=== PATIENT | male | born 1985 | race Two or more races ===

== ENCOUNTER 2021-08-16 20:29 | Inpatient (IN) | payer MEDICAID ==
[~2021-08-16] VITALS: Ht 177.8 cm; Wt 131.1 kg
--- NOTE | 2021-08-16 22:00 | NUR ---
RN NOTES: -RECEIVED A PHONE ENDORSEMENT FROM IMANI MAI/[facility] TEL:[phone], DIRECT ADMIT 35 Y.O., A/OX4,ON O2 AT 2-3L/MIN VIA NC SPO2-94-96%, AMBULATORY, MALE WITH C/O RIGHT SIDED CHEST SHARP PAIN RADIATES ON THE RIGHT UPPER ARM 4/10 WITH THROBBING HEADACHE,DYSPNEA ON EXERTION,NAUSEA, VOMITING AND SWEATING, TACHYCARDIC-100'S, PATIENT IS ALCOHOLIC DRINKER DAILY,LAST DRINK AT 10AM TODAY GIVEN ATIVAN 2 MG, HIS K-3.3-REPLACED WITH KCL 20 mEq P.O., [id number] REPLACED,TROPONIN 4, CTA TO R/O PULMONARY EMBOLISM- NEGATIVE; CT HEAD-NEGATIVE, CXR-NEGATIVE, IV CANULA ON THE RH G#20,SKIN IS INTACT, HOME MEDS:METHADONE AND LASIX ITS WITH THE PATIENT.ETA WITHIN 20 MINUTES.
--- NOTE | 2021-08-16 22:55 | NUR ---
RN NOTES: DIRECT ADMIT JACQUI ROBBINS SHWETA AT AROUND 2258, BROUGHT IN BY 2 EMT VIA BENJYRRAIMUNDO, A/O4, ON O2 INHALATION AT 2-3L/MIN VIA NC, SPO2-94%, TELE MONITOR-SINUS RHYTHM WITH BBB AND OCCASIONAL PVC, ONCE HE IS ANXIOUS HE IS TACHYCARDIEC REACHING -100'S, NOTED WITH SLIGHT SOB UPON EXERTION, ABLE TO MAKE NEEDS KNOW, HE ADMIT HE IS ALCOHOLIC AND DRINK VODKA 7-8 GLASSES A DAY, HE IS A SMOKER BEFORE BUT HE ALREADY STOP MORE THAN A YEAR,HE ADMIT HE WAS A HEROIN USER AND ON METHADONE 120 MG Q DAILY, HE IS TAKING LASIX DAILY.HE HAD SEVERE HEADACHE AND RIGHT SIDED CHEST PAIN THATS WHY HE WENT TO HOSPITAL, HE JUST MOVE IN FROM [place] TO [place], STAYING WITH FRIENDS, HE DID NOT HAVE ANY COVID VACCINE,RN OFFERED BUT HE DECLINED IMMEDIATELY, WISH TO BE FULL CODE. --BODY ASSESSMENT DONE: 1)SKIN DISCOLORATION ON THE LEFT LOWER QUADRANT OF THE ABDOMEN 2)NON PITTING EDEMA OF THE RIGHT FOOT(+) AND LEFT FOOT(+) 3)DISCOLORATION ON THE RIGHT FOOT ANTERIOR AREA 4)SCATTERED RASHES ON THE BACK 5)RIGHT FOREARM WITH SEVERAL NEEDLE PRICK -ORIENTED TO UNIT AND STAFF, FALL,SAFETY,ASPIRATION AND SEIZURE PRECAUTION OBSERVED.
[2021-08-16] MEDS ORDERED: ACETAMINOPHEN 325 MG TABLET PO PRN (23:30)
[2021-08-16] MEDS ORDERED: MAGNESIUM HYDROXIDE 30 ML UDC PO PRN (23:30)
[2021-08-16] MEDS ORDERED: Z GUARD REMEDY 4 OZ OINT TP PRN (23:30)
[2021-08-16] MEDS ORDERED: ZOLPIDEM TARTRATE 5 MG TABLET PO PRN (23:30)
[2021-08-16] MEDS ORDERED: MAG HYDROX/AL HYDROX/SIMETH 30 ML UDC PO PRN (23:30)
[2021-08-16] MEDS ORDERED: ONDANSETRON HCL/PF 4 MG/2 ML VIAL IVP PRN (23:30)
[2021-08-16] MEDS ORDERED: FURO40TA5 PO (23:52)
[2021-08-16] MEDS ORDERED: METHADONE (23:55)
--- NOTE | 2021-08-16 23:55 | NUR ---
RN NOTES: -SEEN AND EXAMINE AT 2338, NO NEED COVID TEST, JUST DO MRSA, COLLECTED SPECIMEN,. -STILL WITH HEADACHE AND HIGH BLOOD PRESSURE AND NAUSEATED AWARE. -F/U IN PHARMACY SPOKE WITH MEAGHAN TO VERIFY ORDER AND RELEASE OF MEDICATION IN THE [facility]
[2021-08-17] VITALS (7 sets, daily range): BP systolic 148–166; BP diastolic 95–112
--- NOTE | 2021-08-17 00:29 | NUR ---
RN NOTES: PER PATIENT HE HAS NO KNOWN ALLERGY
--- NOTE | 2021-08-17 00:35 | NUR ---
RN NOTES: VOMITED ONCE UPON ADMISSION ONLY SALIVA, HE IS NAUSEATED MOST OF THE TIME, ZOFRAN GIVEN.
--- NOTE | 2021-08-17 00:50 | NUR ---
RN NOTES: BP RECHECKED-166/98 HR-102 SPO2-944 WITH O2 AT 2L/MIN, HE LOOKS MORE RELAX NOW, TYLENOL GIVEN FOR HEADACHE.
--- NOTE | 2021-08-17 02:08 | NUR ---
RN NOTES: ABLE TO SLEEP AND REST IN SHORT INTERVALS, ZOFRAN WAS EFFECTIVE, NO NAUSEA AND VOMITING, KEPT RESTED, DIM LIT THE ROOM, KEPT CALL LIGHT WITHIN EASY REACH, CHECK AT FREQUENT INTERVALS.
--- NOTE | 2021-08-17 02:55 | NUR ---
RN NOTES: - HAD ROUNDS NOTIFIED PATIENT LATEST BP-158/99, NOTICED WHILE HE IS ASLEEP HE HAS JERKY MOVEMENT AND HE MENTIONED HE HAD SOME TREMOR WHILE HE WAS AWAKE AROUND 0100. -ADDED LIBRIUM, SHE INSTRUCT TO GIVE ONLY IF PATIENT IS AWAKE. -RIGHT NOW PATIENT IS IN DEEP SLEEP.
[2021-08-17] MEDS: CHLORDIAZEPOXIDE HCL 25 MG CAPSULE PO SCH ×3 (03:28→16:22)
--- NOTE | 2021-08-17 03:28 | NUR ---
RN NOTES: PATIENT WAS AWAKE HE IS ASKING FOR HIS METHADONE EXPLAINED TO HIM IT WILL BE GIVEN IN THE MORNING ORDERED BY THE DOCTOR RIGHT NOW WILL GIVE HIM LIBRIUM FOR HIS TREMORS, HE AGREED.
[2021-08-17 06:48] LABS: CALCIUM, SERUM 8.5 mg/dL (8.5-10.1); CREATININE 0.7 mg/dL (0.6-1.3); MAGNESIUM 1.9 mg/dL (1.8-2.4); PHOSPHORUS 3.3 mg/dL (2.5-4.9); POTASSIUM 3.4 mmol/L (3.5-5.1)
[2021-08-17 06:50] LABS: BASOPHILS % (AUTO) 0.3 % (0.0-2.0); HEMATOCRIT 40 % (39-51); HEMOGLOBIN 13.2 g/dL (13.5-17.5); LYMPHOCYTES # (AUTO) 1.1 K/uL (0.8-4.8); LYMPHOCYTES % (AUTO) 10.9 % (20.0-44.0); MEAN CORPUSCULAR HGB CONC 33 g/dl (31.0-36.0); MEAN CORPUSCULAR VOLUME 93 fL (80-96); MONOCYTES % (AUTO) 10.3 % (2.0-12.0); NEUTROPHILS # (AUTO) 7.7 K/uL (1.8-8.9); NEUTROPHILS % (AUTO) 77.5 % (43.0-81.0); PLATELET COUNT (AUTO) 84 K/uL (150-450); RED BLOOD CELL COUNT(AUTO) 4.32 MIL/uL (4.5-6.0); WHITE BLOOD COUNT (AUTO) 9.9 K/uL (4.3-11.0)
--- NOTE | 2021-08-17 07:30 | NUR ---
SENIOR RISK ANALYST NOTES RECEIVED PATIENT AWAKE IN BED. PATIENT IS ALERT AND ORIENTED TIMES 4. NO PAIN NOTED. NO SOB NOTED. NO DISTRESS NOTED. ABLE TO MAKE NEEDS KNOWN. ON O2 INHALATION VIA NASAL CANNULA. NOTED AT 96%. ON TELE MONITOR. NO ACUTE DISTRESS NOTED. ALL NEEDS ATTENDED. ALL SAFETY MEASURES IN PLACE. BED LOCKED IN THE LOWEST POSITION AND LOCKED. CALL LIGHT AND TABLE IN EASY REACH. BED SIDE RAILS UP TIMES 2. REMIND PATIENT IF FEELS UNSTEADY AND SHAKING REMAINS IN BED AND ASK FOR ASSISTANCE FOR ANY HELPS. PATIENT VERBALIZED UNDERSTANDING.WILL CONTINUE TO MONITOR.
[2021-08-17] MEDS ORDERED: KEY,NONCONTROL,TO KEEP IN PYXI 1 EA MC ONE ×2 (07:47→08:05)
[2021-08-17 08:03] LABS: CHOLESTEROL 168 mg/dL (<200); HDL CHOLESTEROL 65 mg/dL (40-60); LDL 84 mg/dL (0-99); TRIGLYCERIDES 86 mg/dL (30-150)
[2021-08-17] MEDS: ASPIRIN 81 MG TAB.CHEW PO SCH (08:14)
[2021-08-17] MEDS: FUROSEMIDE 40 MG TABLET PO SCH (08:15)
[2021-08-17] MEDS: METHADONE PO SCH (08:15)
[2021-08-17] MEDS ORDERED: POTASSIUM CHLORIDE 20 MEQ TAB.PRT.SR PO SCH (10:30)
[2021-08-17] MEDS: LORAZEPAM INJ 2 MG/ML VIAL IV PRN ×2 (14:04→20:46)
--- NOTE | 2021-08-17 19:30 | NUR ---
RN NOTE RECEIVED PATIENT IN BED, FAMILY AT BEDSIDE, AO X 4, IN NO ACUTE DISTRESS AT THIS TIME. BREATHING UNLABORED, SATURATION AT 95% ON 2L VIA NC, SR ON THE MONITOR, HR IS 99. IV LINE AT R HAND 20G DISLODGED, INSERTED ANOTHER IV LINE 20G AT R FA 20G, PATENT AND FLUSHING WELL, NO S/S OF INFECTION OR INFILTRATION. PATIENT IS CONTINENT AND USES URINAL. SAFETY MEASURES IMPLEMENTED. PATIENT BED ALARM IS ON. HEAD OF BED ELEVATED. BED IS LOCKED, IN LOWEST POSITION AND SIDE RAILS UP. CALL LIGHT WITHIN REACH OF THE PATIENT. WILL CONTINUE TO MONITOR AND REASSESS FOR ANY CHANGES.
--- NOTE | 2021-08-17 19:31 | NUR ---
BARROW WORKER HELPER CLOSING NOTES PATIENT AWAKE IN BED. PATIENT IS ALERT AND ORIENTED TIMES 4. NO PAIN NOTED. NO SOB NOTED. NO DISTRESS NOTED. ABLE TO MAKE NEEDS KNOWN. ON O2 INHALATION VIA NASAL CANNULA. NOTED AT 95%. ON TELE MONITOR. NO ACUTE DISTRESS NOTED. ALL NEEDS ATTENDED. ALL DUE MEDS GIVEN ORDERED.ALL SAFETY MEASURES IN PLACE. BED LOCKED IN THE LOWEST POSITION AND LOCKED. CALL LIGHT AND TABLE IN EASY REACH. BED SIDE RAILS UP TIMES 2. REMIND PATIENT IF FEELS UNSTEADY AND SHAKING REMAINS IN BED AND ASK FOR ASSISTANCE FOR ANY HELPS. PATIENT VERBALIZED UNDERSTANDING.WILL ENDORSE FOR ILENE.
[2021-08-18] VITALS: BP 136/96
[2021-08-18 04:00] VITALS: BP 157/99
[2021-08-18 06:55] LABS: BASOPHILS % (AUTO) 0.3 % (0.0-2.0); EOSINOPHILS % (AUTO) 3.4 % (0.0-6.0); HEMATOCRIT 40 % (39-51); HEMOGLOBIN 13.2 g/dL (13.5-17.5); LYMPHOCYTES # (AUTO) 1.2 K/uL (0.8-4.8); LYMPHOCYTES % (AUTO) 11.6 % (20.0-44.0); MEAN CORPUSCULAR HGB CONC 33 g/dl (31.0-36.0); MEAN CORPUSCULAR VOLUME 94 fL (80-96); MONOCYTES # (AUTO) 1.1 K/uL (0.1-1.30); MONOCYTES % (AUTO) 10.4 % (2.0-12.0); NEUTROPHILS # (AUTO) 7.7 K/uL (1.8-8.9); NEUTROPHILS % (AUTO) 74.3 % (43.0-81.0); PLATELET COUNT (AUTO) 96 K/uL (150-450); RED BLOOD CELL COUNT(AUTO) 4.26 MIL/uL (4.5-6.0); WHITE BLOOD COUNT (AUTO) 10.3 K/uL (4.3-11.0)
--- NOTE | 2021-08-18 07:28 | NUR ---
RN OPENING NOTES PATIENT AWAKE IN BED. PATIENT IS A/O X 4. NO PAIN NOTED. NO SOB NOTED. NO DISTRESS NOTED. ABLE TO MAKE NEEDS KNOWN. ON O2 INHALATION VIA NASAL CANNULA. NOTED AT 95%. ON TELE MONITOR. NO ACUTE DISTRESS NOTED. ALL NEEDS ATTENDED. ALL DUE MEDS GIVEN ORDERED.ALL SAFETY MEASURES IN PLACE. WILL CONT. TO MONITOR THROUGHOUT SHIFT.
[2021-08-18 08:00] VITALS: BP 149/98
[2021-08-18 08:15] LABS: CALCIUM, SERUM 8.1 mg/dL (8.5-10.1); CREATININE 0.8 mg/dL (0.6-1.3); POTASSIUM 3.5 mmol/L (3.5-5.1)
[2021-08-18] MEDS: METHADONE PO SCH (08:54)
[2021-08-18] MEDS: FUROSEMIDE 40 MG TABLET PO SCH (08:54)
[2021-08-18] MEDS: CHLORDIAZEPOXIDE HCL 25 MG CAPSULE PO SCH ×2 (08:54→16:13)
[2021-08-18] MEDS: ASPIRIN 81 MG TAB.CHEW PO SCH (08:54)
[2021-08-18] MEDS ORDERED: METOPROLOL TARTRATE 50 MG TABLET PO SCH (09:30)
[2021-08-18] MEDS: POTASSIUM CHLORIDE 20 MEQ TAB.PRT.SR PO SCH ×2 (09:55→10:39)
[2021-08-18 12:00] VITALS: BP 122/81
--- NOTE | 2021-08-18 13:15 | NUR ---
SW Consult: SW consult requested for patient substance abuse. Patient was brought in due to hypertension and alcohol abuse. Patient presents alert and oriented x4 (self,place,time,situation). Patient presented with flat affect and was guarded. Patient was with grandmother Rosalia ([phone]) who was present in patient's room. SW asked if he is comfortable with grandmother present, he stated he wants grandmother present. Patient reported that he was brought to the hospital due to hypertension and substance abuse. Patient reported that he began to heavily drink at the age of 33. He reported that he only drinks liquor and drinks a glass a day. Patient denied any use of drugs. Patient reports that he is currently unemployed and lives with grandmother Rosalia ([phone]) located at [address] [place] [address]. He stated that grandmother takes care of him. Patient denies any suicidal or homicidal ideation. Patient denied visual/auditory hallucinations. Patient denied any sort of mental health issues. SW offered pt resources and he was agreeable of taking the resources. SW conducted brief substance abuse intervention. Substance Abuse resources provided included: [facility] Substance Abuse Self-Helpline ([facility]) ; [facility] [id number] [facility] [id number] ; [facility] [address] [facility] [address] ; [facility] [address] [facility] [address] ; [facility] [address] [address] ; [facility] [address] [facility] [address] ; [facility] [address] [facility] [address] ; [facility] Substance Abuse Helpline([facility] ; [facility] ; [facility] [place]; [facility] [place]; [facility] [place]; [facility] Gustavo Sommerka[place]; [facility] [place]; [facility] [place]; [facility] [place]; [facility], [facility]. [facility] [place]; Alcoholics Anonymous -[facility]; [facility] ; Marijuana Anonymous [facility]; Narcotics Anonymous www.na.org;
[2021-08-18] MEDS ORDERED: METO50TA16 PO (14:48)
[2021-08-18] MEDS ORDERED: ASPI-1169 PO (14:48)
[2021-08-18 15:22] LABS: LYMPHOCYTES % (MANUAL) 10 % (16-48); MONOCYTES % (MANUAL) 10 % (0-11.0); NEUTROPHILS % (MANUAL) 75 (42-76)
[2021-08-18 15:23] LABS: EOSINOPHILS % (MANUAL) 5 % (0-4)
--- NOTE | 2021-08-18 16:20 | NUR ---
DC NOTES PT DC'D TO HOME IN STABLE CONDITION. PT REQUESTED 1700 MEDICINE. ADMINISTERED LIBRIUM AND DISCUSSED POTENTIAL SIDE EFFECTS WITH PT. SAFETY MEASURES EXPLAINED AND PT VERBALIZED UNDERSTANDING. ALL PAPERWORK SIGNED AND COMPLETED. ALL BELONGINGS SENT WITH PT. IV ACCESS REMOVED WITH NO COMPLICATIONS. PT LEFT UNIT IN WHEELCHAIR HAPPILY WITH GRANDMOTHER IN STABLE CONDITION.
[2021-08-18] MEDS ORDERED: KEY,NONCONTROL,TO KEEP IN PYXI 1 EA MC ONE (16:42)
== END 2021-08-18 16:30 | disposition home or self-care (01) | DRG 133 ==
LOC: TELE1 22:50 → MEDSG1 08-18 12:21
PROVIDERS: ADMIT Nurse Practitioner Acute Care; ATTEND Student in an Organized Health Care Education/Training Program
DX: J96.01 Acute respiratory failure with hypoxia (principal); I11.9 Hypertensive heart disease without heart failure; E66.9 Obesity, unspecified; E87.6 Hypokalemia; Z87.891 Personal history of nicotine dependence; F11.10 Opioid abuse, uncomplicated; Z79.899 Other long term (current) drug therapy; Y90.9 Presence of alcohol in blood, level not specified; Z68.41 Body mass index [BMI] 40.0-44.9, adult; F10.139 Alcohol abuse with withdrawal, unspecified; Z20.822 Contact with and (suspected) exposure to COVID-19; R25.1 Tremor, unspecified
CPT/HCPCS: 36415; 80048-TC; 80061-TC; 83735-TC; 83880; 84100-TC; 84484-TC; 85025-TC; 87081-TC; 93307-TC; 94799-TC; G0378; J2060; J2405

== ENCOUNTER 2022-02-28 10:48 | Emergency (ER) | payer SELFPAY ==
[~2022-02-28] VITALS: Ht 182.9 cm; Wt 163.3 kg
[~2022-02-28 10:48] MED LIST: ASPI-1169 PO; FURO40TA5 PO; METHADONE; METO50TA16 PO
--- NOTE | 2022-02-28 11:10 | NUR ---
Andrei garcia in [facility] - 02/28/22 at 1255 by GEOFF BP HIGH(161/100) YESTERDAY, DRINKS A BOTTLE OF VODKA (750 ML) A DAY
[2022-02-28] MEDS ORDERED: LORAZEPAM INJ 2 MG/ML VIAL ONE (11:51)
[2022-02-28] MEDS ORDERED: IV NS 0.9% 1,000 ML BAG IV ONE (12:00)
[2022-02-28] MEDS ORDERED: LORAZEPAM INJ 2 MG/ML VIAL IV ONE (12:00)
[2022-02-28 12:21] LABS: BASOPHILS % (AUTO) 0.3 % (0.0-2.0); EOSINOPHILS % (AUTO) 1.9 % (0.0-6.0); HEMATOCRIT 46 % (39-51); HEMOGLOBIN 15.3 g/dL (13.5-17.5); LYMPHOCYTES # (AUTO) 1.6 K/uL (0.8-4.8); LYMPHOCYTES % (AUTO) 22.9 % (20.0-44.0); MEAN CORPUSCULAR HGB CONC 33 g/dl (31.0-36.0); MEAN CORPUSCULAR VOLUME 89 fL (80-96); MONOCYTES # (AUTO) 0.7 K/uL (0.1-1.30); MONOCYTES % (AUTO) 9.8 % (2.0-12.0); NEUTROPHILS # (AUTO) 4.6 K/uL (1.8-8.9); NEUTROPHILS % (AUTO) 65.1 % (43.0-81.0); PLATELET COUNT (AUTO) 113 K/uL (150-450); RED BLOOD CELL COUNT(AUTO) 5.18 MIL/uL (4.5-6.0); WHITE BLOOD COUNT (AUTO) 7.1 K/uL (4.3-11.0)
[2022-02-28 12:36] LABS: CALCIUM, SERUM 9.1 mg/dL (8.5-10.1); CARBON DIOXIDE 25 mmol/L (21-32); CHLORIDE 101 mmol/L (98-107); CREATININE 0.8 mg/dL (0.6-1.3); GLUCOSE 125 mg/dL (74-106); POTASSIUM 3.4 mmol/L (3.5-5.1); SODIUM SERUM 135 mmol/L (136-145); UREA NITROGEN, BLOOD 6 mg/dL (7-18)
[2022-02-28] MEDS ORDERED: POTASSIUM CHLORIDE 20 MEQ TAB.PRT.SR PO ONE ×2 (13:30→13:31)
[2022-02-28] MEDS ORDERED: CHLO25CA22 PO (13:39)
[2022-02-28 14:29] VITALS: BP 141/98
== END 2022-02-28 14:30 | disposition home or self-care (01) ==
LOC: ER 10:55
DX: R07.9 Chest pain, unspecified (principal); F10.239 Alcohol dependence with withdrawal, unspecified; F10.229 Alcohol dependence with intoxication, unspecified; I10 Essential (primary) hypertension; Z79.899 Other long term (current) drug therapy; Y90.9 Presence of alcohol in blood, level not specified
CPT/HCPCS: 99285; 96374; 71045; 96361; 93005; 85025; 80048; 36415; 84484; J2060; J7030

== ENCOUNTER 2022-03-30 18:39 | Inpatient (IN) | payer MEDICAID ==
[~2022-03-30] VITALS: Ht 172.7 cm; Wt 120.2 kg
[~2022-03-30 18:39] MED LIST changes: +CHLO25CA22 PO
--- NOTE | 2022-03-30 19:17 | NUR ---
DR GROSS AT BEDSIDE FOR EVAL
--- NOTE | 2022-03-30 19:30 | NUR ---
PT IN ER ROOM 4. C/O SOB, HIGH BP. , AND ETOH WITHDRAWALS. ADMITS TO LAST DRINK 3 HOURS AGO. PT IS ALERT AND ORIENTED. RR EVEN AND NONLABORED. CONNECTED TO MONITOR.
[2022-03-30] MEDS ORDERED: LORAZEPAM 1 MG TABLET ONE (19:34)
--- NOTE | 2022-03-30 19:46 | NUR ---
IV LINE ESTABLISHED, LHAND 20G
[2022-03-30] MEDS ORDERED: LORAZEPAM 1 MG TABLET PO ONE (20:00)
[2022-03-30] MEDS ORDERED: IV NS 0.9% 1,000 ML IV ONE (20:00)
[2022-03-30 20:02] LABS: BASOPHILS % (AUTO) 0.5 % (0.0-2.0); EOSINOPHILS % (AUTO) 1.2 % (0.0-6.0); HEMATOCRIT 42 % (39-51); LYMPHOCYTES # (AUTO) 1.8 K/uL (0.8-4.8); LYMPHOCYTES % (AUTO) 27.4 % (20.0-44.0); MEAN CORPUSCULAR HGB CONC 33 g/dl (31.0-36.0); MEAN CORPUSCULAR VOLUME 87 fL (80-96); MONOCYTES # (AUTO) 0.9 K/uL (0.1-1.30); MONOCYTES % (AUTO) 13.2 % (2.0-12.0); NEUTROPHILS # (AUTO) 3.8 K/uL (1.8-8.9); NEUTROPHILS % (AUTO) 57.7 % (43.0-81.0); PLATELET COUNT (AUTO) 97 K/uL (150-450); RED BLOOD CELL COUNT(AUTO) 4.88 MIL/uL (4.5-6.0); WHITE BLOOD COUNT (AUTO) 6.6 K/uL (4.3-11.0)
[2022-03-30 20:03] LABS: CALCIUM, SERUM 8.3 mg/dL (8.5-10.1); CARBON DIOXIDE 27 mmol/L (21-32); CHLORIDE 103 mmol/L (98-107); CREATININE 0.9 mg/dL (0.6-1.3); GLUCOSE 165 mg/dL (74-106); POTASSIUM 3.4 mmol/L (3.5-5.1); SODIUM SERUM 139 mmol/L (136-145); UREA NITROGEN, BLOOD 16 mg/dL (7-18)
[2022-03-30 20:10] LABS: ALANINE AMINOTRANSFERASE 86 U/L (12-78); ALBUMIN 3.5 g/dL (3.4-5.0); ALCOHOL, BLOOD 254 mg/dL (0-0); ALKALINE PHOSPHATASE 116 U/L (46-116); ASPARTATE AMINOTRANSFERASE 160 U/L (15-37); BILIRUBIN,DIRECT 0.5 mg/dL (0.0-0.2); BILIRUBIN,TOTAL 1.1 mg/dL (0.2-1.0); TOTAL PROTEIN, SERUM 8.7 g/dL (6.4-8.2)
[2022-03-30 20:19] LABS: ACETAMINOPHEN < 10 ug/ml (10-30)
--- NOTE | 2022-03-30 20:21 | NUR ---
COVID SWAB COLLECTED
[2022-03-30 20:24] LABS: LYMPHOCYTES % (MANUAL) 28 % (16-48); MONOCYTES % (MANUAL) 5 % (0-11.0); NEUTROPHILS % (MANUAL) 67 (42-76)
[2022-03-30] MEDS ORDERED: MORPHINE SULFATE INJ 2 MG/ML DISP.SYRIN ONE (20:46)
--- NOTE | 2022-03-30 20:57 | NUR ---
PT TAKEN TO CT
[2022-03-30] MEDS ORDERED: MORPHINE SULFATE INJ 2 MG/ML DISP.SYRIN IV ONE (21:00)
[2022-03-30 21:31] LABS: BILIRUBIN,URINE 1+ (NEGATIVE); COLOR,URINE YELLOW (YELLOW); LEUKOCYTE ESTERASE ,URINE NEGATIVE (NEGATIVE); NITRITE, URINE POSITIVE (NEGATIVE); PH,URINE 6.5 (5.0-8.0); PROTEIN,URINE 2+ mg/dl (NEGATIVE); UGLUCOSE NEGATIVE (NEGATIVE)
[2022-03-30 21:36] LABS: RBC,URINE 51-80 /HPF (0-2)
[2022-03-30 21:37] LABS: BACTERIA,URINE 1+ /HPF (None Seen); MUCUS,URINE MOD /LPF (None Seen); WBC,URINE 0-2 /HPF (0-3)
[2022-03-30 22:00] VITALS: BP 143/87
[2022-03-30] MEDS ORDERED: ZOLPIDEM TARTRATE 5 MG TABLET PO PRN (22:00)
[2022-03-30] MEDS ORDERED: MAG HYDROX/AL HYDROX/SIMETH 30 ML UDC PO PRN (22:00)
[2022-03-30] MEDS ORDERED: MAGNESIUM HYDROXIDE 30 ML UDC PO PRN (22:00)
[2022-03-30] MEDS ORDERED: ACETAMINOPHEN 325 MG TABLET PO PRN (22:00)
[2022-03-30] MEDS ORDERED: Z GUARD REMEDY 4 OZ OINT TP PRN (22:00)
[2022-03-30] MEDS ORDERED: Thiamine 100 MG in IV D5W 50 ML IV SCH (22:00)
--- NOTE | 2022-03-30 22:33 | NUR ---
report given to juan f murry
[2022-03-30 22:52] VITALS: BP 143/87
--- NOTE | 2022-03-30 23:00 | NUR ---
ADMISSION NOTES Patient arrived via gurney accompanied by EMT and RN @ 2252. AOx4, able to make needs known. On NC 2LPM and tolerating well. No SOB Noted. No s/sx of respiratory distress noted. IV access in left hand #20G running NS @ 150 mL/hr. No skin impairments. Provided education to patient. Safety precautions in place: bed in lowest, locked position, siderails upX2, and brakes on. Table and call light within reach. All needs met at this time.
[2022-03-30] MEDS ORDERED: CEFTRIAXONE 1 G VIAL ONE (23:17)
[2022-03-30] MEDS: CEFTRIAXONE 1 G in IV D5W 50 ML IV SCH (23:24)
[2022-03-30] MEDS: IV NS 0.9% 1,000 ML IV PRN (23:25)
[2022-03-30] MEDS: CHLORDIAZEPOXIDE HCL 25 MG CAPSULE PO SCH (23:50)
--- NOTE | 2022-03-30 23:56 | NUR ---
RN Notes Patient complaining of left flank pain 8/10 that radiates. Marly Smith made aware. Ordered 1 mg of Dilaudid IV Q6HRS PRN for pain of 8-10.
[2022-03-31] MEDS: HYDROMORPHONE 1 MG/1 ML DISP.SYRIN IV PRN ×5 (00:22→22:27)
--- NOTE | 2022-03-31 00:22 | NUR ---
RN Notes Administered dilaudid 1 mg per order for pain 10/04. VS WNL.
[2022-03-31] MEDS ORDERED: Thiamine 100 MG/ML VIAL ONE (01:07)
[2022-03-31 04:00] VITALS: BP 136/89
[2022-03-31 05:49] LABS: BASOPHILS % (AUTO) 0.7 % (0.0-2.0); EOSINOPHILS % (AUTO) 2.2 % (0.0-6.0); HEMATOCRIT 39 % (39-51); HEMOGLOBIN 12.9 g/dL (13.5-17.5); LYMPHOCYTES # (AUTO) 1.6 K/uL (0.8-4.8); LYMPHOCYTES % (AUTO) 29.1 % (20.0-44.0); MEAN CORPUSCULAR HGB CONC 33 g/dl (31.0-36.0); MEAN CORPUSCULAR VOLUME 86 fL (80-96); MONOCYTES # (AUTO) 0.7 K/uL (0.1-1.30); MONOCYTES % (AUTO) 11.7 % (2.0-12.0); NEUTROPHILS # (AUTO) 3.1 K/uL (1.8-8.9); NEUTROPHILS % (AUTO) 56.3 % (43.0-81.0); PLATELET COUNT (AUTO) 69 K/uL (150-450); RED BLOOD CELL COUNT(AUTO) 4.52 MIL/uL (4.5-6.0); WHITE BLOOD COUNT (AUTO) 5.6 K/uL (4.3-11.0)
[2022-03-31] MEDS: CHLORDIAZEPOXIDE HCL 25 MG CAPSULE PO SCH ×4 (05:51→23:34)
[2022-03-31] MEDS: IV NS 0.9% 1,000 ML IV PRN ×2 (05:51→13:45)
[2022-03-31 06:12] LABS: CALCIUM, SERUM 7.7 mg/dL (8.5-10.1); CREATININE 0.7 mg/dL (0.6-1.3); MAGNESIUM 1.8 mg/dL (1.8-2.4); PHOSPHORUS 3.1 mg/dL (2.5-4.9); POTASSIUM 3.4 mmol/L (3.5-5.1)
[2022-03-31] MEDS: ONDANSETRON HCL/PF 4 MG/2 ML VIAL IVP PRN ×2 (06:30→17:03)
--- NOTE | 2022-03-31 06:33 | NUR ---
RN Notes Administered Zofran for nausea. Administered Dilaudid for pain per pt request. VS WNL.
--- NOTE | 2022-03-31 06:57 | NUR ---
RN Closing Notes Pt in bed, awake, watching videos on phone. AOx4, able to make needs known. On NC 2LPM and tolerating well. No SOB Noted. No s/sx of respiratory distress noted. IV access in left hand #20G running NS @ 150 mL/hr. No skin impairments. Provided education to patient. All orders carried out. All needs met. Pt kept clean and dry. Treated pain throughout shift. Safety precautions in place: bed in lowest, locked position, siderails upX2, and brakes on. Table and call light within reach. Will endorse to oncoming shift for ILENE.
--- NOTE | 2022-03-31 07:40 | NUR ---
PHOTOVOLTAIC INSTALLATION TECHNICIAN OPENING NOTE Received patient fully awake, oriented x 4, alert. Patient stated he had slept well during the night. Pt stated he awoke earlier this morning with pain, nausea and feeling "shakey". warehouse shift supervisor RN already medicated patient for pain and nausea at 6:30 AM. Patient stated his pain reduced from 8/10 level to a 2/10 level now. Reviewed safety protocals with patient and how to call for help from staff using the bed call mtz/light device. Educated patient about fall prevention. Bed brake locked and bed in lowest position with two bed siderails up and padded with blankets for seizure precautions. Suction equipment in room. Bed call mtz/light within patient's reach. Bedside table within patient's reach. Patient was able to get up OOB independently and walk with steady gait to bathroom and back to bed. Patient denies dizziness nor light headedness. Will continue to care for and monitor patient per MD POC. Addendum: 03/31/22 at 1014 by AJ TANG RN Tele monitor showing ST with BBB and HR = 103. No signs of acute distress. Pt denies chest pain.
[2022-03-31 08:00] VITALS: BP 131/85
[2022-03-31] MEDS ORDERED: POTASSIUM CHLORIDE 20 MEQ TAB.PRT.SR PO ONE (08:30)
[2022-03-31] MEDS: ASPIRIN 81 MG TAB.CHEW PO SCH (08:33)
[2022-03-31] MEDS: PANTOPRAZOLE 40 MG VIAL IV SCH (08:33)
[2022-03-31] MEDS: FUROSEMIDE 40 MG TABLET PO SCH (08:33)
[2022-03-31] MEDS: METOPROLOL TARTRATE 50 MG TABLET PO SCH ×2 (08:34→20:40)
[2022-03-31] MEDS: LORAZEPAM INJ 2 MG/ML VIAL IV PRN ×3 (08:50→20:40)
[2022-03-31 12:00] VITALS: BP 140/80
[2022-03-31 16:00] VITALS: BP 133/64
[2022-03-31 16:09] LABS: EOSINOPHILS % (MANUAL) 1 % (0-4); LYMPHOCYTES % (MANUAL) 32 % (16-48); MONOCYTES % (MANUAL) 4 % (0-11.0); NEUTROPHILS % (MANUAL) 63 (42-76)
[2022-03-31] MEDS: THIAMINE HCL 100 MG TABLET PO SCH (17:39)
--- NOTE | 2022-03-31 19:25 | NUR ---
TIP SCOURER CLOSING NOTE Patient resting comfortably with moderate right upper abdominal pain 4-5 after having dilaudid 1 mg IV at 16:00 hrs and zofran 4 mg IV at 16:45 hours for nausea. No signs of SOB. Lung sounds clear to auscultation. No edema noted. No signs of seizure activity seen on entire day shift. Seizure precautions maintained with padded siderails x 2 and suction equipment at bedside. Tele monitor showing sinus rythym with HR = 82 bpm. Patient up OOB to bathroom ad [place] with steady gait and no symptoms of dizziness nor light headedness. IV fluids stopped by Dr. Blood due to I/O discrepancy of about 1,650 mLs more intake than output. Urine has gradually turned churn drill operator in color as day progressed. Urine started out tea colored, now churn drill operator orange to yellow to pale. Patient has fair appetite eating 50% or less of meals. Drank about 1,160 mLs PO fluids over last 12 hours. PIV # 20 gauge to left hand is intact, patent, saline locked. All prescribed medications given as ordered. Patient cooperative and alert and oriented throughout shift, able to make his needs known. No visible signs of delirium tremens. Will endorse to security shift supervisor RN Yolanda for ILENE.
--- NOTE | 2022-03-31 19:30 | NUR ---
MYSQL DATABASE DEVELOPER NOTES SR-77 ON TELE MONITOR.
--- NOTE | 2022-03-31 19:30 | NUR ---
PROGRAM DEVELOPMENT MANAGER NOTES RECEIVED LAYING ON BED,A/O X4,BREATHING REGULAR,NOT IN ANY FORM OF DISTRESS.SALINE LOCK LEFT HAND INTACT AND PATENT.SEIZURE PRECAUTION OBSERVED,SIDE RAILS PADDED FOR SAFETY.CALL LIGHT IN REACH,NEEDS ANTICIPATED.
[2022-03-31 20:00] VITALS: BP 125/84
--- NOTE | 2022-03-31 20:40 | NUR ---
BOBTAIL DRIVER NOTES FEELING ANXIOUS,ATIVAN 2MG IV GIVEN ORDERED,VITAL SIGNS STABLE.
[2022-03-31] MEDS: CEFTRIAXONE 1 G in IV D5W 50 ML IV SCH (21:57)
--- NOTE | 2022-03-31 22:00 | NUR ---
METAL MILLING MACHINE OPERATOR NOTES NOT IN ANY FORM OF DISTRESS.NO SEIZURE ACTIVITY NOTED.REPORT GIVEN TO BRITTANY CORDERO FOR CONTINUITY OF CARE,
--- NOTE | 2022-03-31 23:00 | NUR ---
FLOWER CUTTER NOTE PATIENT COMPLAINED OF PAIN WITH A SCORE OF 8/10, ADMINISTERED DILAUDID PRN PRESCRIBED; PATIENT TOLERATED WELL AND IS CURRENTLY SLEEPING
[2022-03-31 23:27] VITALS: BP 125/84
[2022-04-01] VITALS: BP 125/87
[2022-04-01 04:00] VITALS: BP 134/64
[2022-04-01 05:51] LABS: BASOPHILS % (AUTO) 0.6 % (0.0-2.0); EOSINOPHILS % (AUTO) 4.1 % (0.0-6.0); HEMATOCRIT 41 % (39-51); HEMOGLOBIN 13.3 g/dL (13.5-17.5); LYMPHOCYTES # (AUTO) 0.9 K/uL (0.8-4.8); LYMPHOCYTES % (AUTO) 16.3 % (20.0-44.0); MEAN CORPUSCULAR HGB CONC 33 g/dl (31.0-36.0); MEAN CORPUSCULAR VOLUME 87 fL (80-96); MONOCYTES # (AUTO) 0.7 K/uL (0.1-1.30); NEUTROPHILS # (AUTO) 3.8 K/uL (1.8-8.9); PLATELET COUNT (AUTO) 74 K/uL (150-450); RED BLOOD CELL COUNT(AUTO) 4.65 MIL/uL (4.5-6.0); WHITE BLOOD COUNT (AUTO) 5.6 K/uL (4.3-11.0)
[2022-04-01 06:10] LABS: ALBUMIN 2.9 g/dL (3.4-5.0); BILIRUBIN,DIRECT 0.6 mg/dL (0.0-0.2); BILIRUBIN,TOTAL 1.9 mg/dL (0.2-1.0); CALCIUM, SERUM 7.9 mg/dL (8.5-10.1); CREATININE 0.8 mg/dL (0.6-1.3); MAGNESIUM 1.8 mg/dL (1.8-2.4); PHOSPHORUS 2.5 mg/dL (2.5-4.9); POTASSIUM 3.5 mmol/L (3.5-5.1); TOTAL PROTEIN, SERUM 7.6 g/dL (6.4-8.2)
[2022-04-01] MEDS: CHLORDIAZEPOXIDE HCL 25 MG CAPSULE PO SCH ×3 (06:15→17:43)
--- NOTE | 2022-04-01 06:38 | NUR ---
HIGH WIRE ARTIST CLOSING NOTE PATIENT IS ALERT AND ORIENTED X 4, ABLE TO MAKE NEEDS KNOWN; ON ROOM AIR BREATHING EVENLY AND NO RESPIRATORY DISTRESS NOTED; NO COMPLAINTS OF PAIN AND DISCOMFORT AT THIS TIME; MAINTAINED ON SEIZURE PRECAUTION; WITH IV ACCESS ON LEFT HAND G20 - SALINE LOCK, INTACT AND PATENT; HOOKED TO SUSTAINABILITY DIRECTOR CURRENTLY READING SINUS RHYTHM 77 BPM; ADMINISTERED MEDICATIONS PRESCRIBED; MONITORED ACCORDINGLY; PATIENT'S NEEDS ATTENDED; MONITORED ACCORDINGLY; SAFETY PRECAUTIONS IMPLEMENTED, BED IN LOW POSITION, LOCKED, SIDE RAILS UP X 2, CALL LIGHT WITHIN REACH; WILL ENDORSE TO AM NURSE FOR ILENE
--- NOTE | 2022-04-01 07:30 | NUR ---
PT RECEIVED RESTING COMFORTABLY IN BED. NO S/S OR C/O PAIN OR DISTRESS NOTED. SIDE RAILS UP X2, CALL LIGHT LEFT WITHIN REACH. WILL CONTINUE PLAN OF CARE.
[2022-04-01] MEDS: ASPIRIN 81 MG TAB.CHEW PO SCH (08:27)
[2022-04-01] MEDS: PANTOPRAZOLE 40 MG VIAL IV SCH (08:27)
[2022-04-01] MEDS: FUROSEMIDE 40 MG TABLET PO SCH (08:27)
[2022-04-01] MEDS: METOPROLOL TARTRATE 50 MG TABLET PO SCH ×2 (08:28→20:49)
[2022-04-01] MEDS: ONDANSETRON HCL/PF 4 MG/2 ML VIAL IVP PRN (08:28)
[2022-04-01] MEDS: HYDROMORPHONE 1 MG/1 ML DISP.SYRIN IV PRN ×3 (08:29→23:52)
[2022-04-01 08:58] LABS: EOSINOPHILS % (MANUAL) 2 % (0-4); LYMPHOCYTES % (MANUAL) 20 % (16-48); MONOCYTES % (MANUAL) 9 % (0-11.0); NEUTROPHILS % (MANUAL) 69 (42-76)
[2022-04-01 10:19] VITALS: BP 118/80
[2022-04-01] MEDS: LORAZEPAM INJ 2 MG/ML VIAL IV PRN ×2 (11:34→20:49)
[2022-04-01] MEDS: THIAMINE HCL 100 MG TABLET PO SCH (17:43)
--- NOTE | 2022-04-01 19:30 | NUR ---
MS RN OPENING NOTE RECEIVED PATIENT FROM AM NURSE; PATIENT IS ALERT AND ORIENTED X 4, ABLE TO MAKE NEEDS KNOWN; ON ROOM AIR TOLERATING WELL, BREATHING EVENLY AND NO RESPIRATORY DISTRESS NOTED; NO COMPLAINTS OF PAIN AND DISCOMFORT AT THIS TIME; MAINTAINED ON SEIZURE PRECAUTION; WITH IV ACCESS ON LEFT HAND G20 - SALINE LOCK, INTACT AND PATENT; SAFETY PRECAUTIONS IMPLEMENTED, BED IN LOW POSITION, LOCKED, SIDE RAILS UP X 2, CALL LIGHT WITHIN REACH; WILL CONTINUE TO MONITOR THROUGHOUT SHIFT
[2022-04-01 20:00] VITALS: BP 121/70
[2022-04-01] MEDS: CEFTRIAXONE 1 G in IV D5W 50 ML IV SCH (21:42)
[2022-04-02] VITALS: BP 126/77
[2022-04-02] MEDS: CHLORDIAZEPOXIDE HCL 25 MG CAPSULE PO SCH ×5 (00:59→23:48)
--- NOTE | 2022-04-02 01:05 | NUR ---
MS RN NOTE PATIENT COMPLAINED OF PAIN WITH A SCORE OF 8/10 AT 2340H, EXPLAINED TO PATIENT THAT HE HAS A DUE DOSE OF LIBRIUM AND THAT IT IS NOT POSSIBLE TO ADMINISTER THE DILAUDID AND LIBRIUM AT THE SAME TIME; PATIENT INSISTED TO HAVE THE DILAUDID FIRST; CHARGE NURSE MADE AWARE OF THE PATIENT'S DEMAND; ADMINISTERED DILAUDID PRN ORDERED, PATIENT TOLERATED WELL; DELAYED THE ADMINISTRATION OF LIBRIUM, PATIENT IS STABLE AT THIS TIME
[2022-04-02 06:15] LABS: BASOPHILS % (AUTO) 0.4 % (0.0-2.0); EOSINOPHILS % (AUTO) 5.4 % (0.0-6.0); HEMATOCRIT 43 % (39-51); HEMOGLOBIN 14.2 g/dL (13.5-17.5); LYMPHOCYTES # (AUTO) 1.3 K/uL (0.8-4.8); LYMPHOCYTES % (AUTO) 20.1 % (20.0-44.0); MEAN CORPUSCULAR HGB CONC 33 g/dl (31.0-36.0); MEAN CORPUSCULAR VOLUME 87 fL (80-96); MONOCYTES # (AUTO) 0.7 K/uL (0.1-1.30); MONOCYTES % (AUTO) 11.1 % (2.0-12.0); PLATELET COUNT (AUTO) 79 K/uL (150-450); RED BLOOD CELL COUNT(AUTO) 4.94 MIL/uL (4.5-6.0); WHITE BLOOD COUNT (AUTO) 6.3 K/uL (4.3-11.0)
[2022-04-02 06:45] LABS: BILIRUBIN,DIRECT 0.7 mg/dL (0.0-0.2); BILIRUBIN,TOTAL 1.8 mg/dL (0.2-1.0); TOTAL PROTEIN, SERUM 7.9 g/dL (6.4-8.2)
[2022-04-02 06:48] LABS: CALCIUM, SERUM 8.3 mg/dL (8.5-10.1); CREATININE 0.8 mg/dL (0.6-1.3); PHOSPHORUS 3.1 mg/dL (2.5-4.9); POTASSIUM 3.3 mmol/L (3.5-5.1)
--- NOTE | 2022-04-02 06:52 | NUR ---
MS RN CLOSING NOTE PATIENT IS ALERT AND ORIENTED X 4, ABLE TO MAKE NEEDS KNOWN; ON ROOM AIR BREATHING EVENLY AND NO RESPIRATORY DISTRESS NOTED; NO COMPLAINTS OF PAIN AND DISCOMFORT AT THIS TIME; MAINTAINED ON SEIZURE PRECAUTION; WITH IV ACCESS ON LEFT HAND G20 - SALINE LOCK, INTACT AND PATENT; ADMINISTERED MEDICATIONS PRESCRIBED; MONITORED ACCORDINGLY; PATIENT'S NEEDS ATTENDED; MONITORED ACCORDINGLY; SAFETY PRECAUTIONS IMPLEMENTED, BED IN LOW POSITION, LOCKED, SIDE RAILS UP X 2, CALL LIGHT WITHIN REACH; WILL ENDORSE TO AM NURSE FOR ILENE
--- NOTE | 2022-04-02 07:42 | NUR ---
MS RN OPENING NOTE Patient in bed, asleep. A/O x 4. On room air breathing evenly and unlabored, no SOB or s/s of distress notes. IV access on Left hand #20 SL intact and patent. Safety precautions in p lace: bed in low, locked position; siderails up x2; call light within reach. Will continue to monitor.
[2022-04-02] MEDS: HYDROMORPHONE 1 MG/1 ML DISP.SYRIN IV PRN ×3 (07:57→21:26)
[2022-04-02 08:00] VITALS: BP 126/68
[2022-04-02] MEDS: FUROSEMIDE 40 MG TABLET PO SCH (08:31)
[2022-04-02] MEDS: ASPIRIN 81 MG TAB.CHEW PO SCH (08:31)
[2022-04-02] MEDS: METOPROLOL TARTRATE 50 MG TABLET PO SCH ×2 (08:32→20:32)
[2022-04-02] MEDS: PANTOPRAZOLE 40 MG/PACK PACK PO SCH (08:32)
[2022-04-02 08:52] LABS: BAND % (MANUAL) 2 % (0.0-5.0); EOSINOPHILS % (MANUAL) 4 % (0-4); LYMPHOCYTES % (MANUAL) 24 % (16-48); MONOCYTES % (MANUAL) 8 % (0-11.0); NEUTROPHILS % (MANUAL) 62 (42-76)
[2022-04-02] MEDS ORDERED: CHLORDIAZEPOXIDE HCL 25 MG CAPSULE PO ONE (10:00)
--- NOTE | 2022-04-02 11:22 | NUR ---
SS consult requested for ETOH/Homelessness. SW met with pt. at bedside. However, family is visiting. SW will follow up at a later time.
[2022-04-02] MEDS ORDERED: POTASSIUM CHLORIDE 20 MEQ TAB.PRT.SR PO ONE ×2 (11:30)
--- NOTE | 2022-04-02 12:00 | NUR ---
RN NOTE Patient complained of pain on his right lower abdomen, 8/10 on pain scale. PRN Dilaudid 1 mg given. Will continue to monitor. Addendum: 04/02/22 at 1202 by VAZQUEZ VALLADARES RN CORRECTION: Time medication given at 0757.
[2022-04-02 16:00] VITALS: BP 114/75
[2022-04-02] MEDS: THIAMINE HCL 100 MG TABLET PO SCH (17:28)
--- NOTE | 2022-04-02 19:10 | NUR ---
MS RN CLOSING NOTE Patient in bed resting. A/O x 4, able to make needs known. On room air, no SOB or s/s of distress notes. IV access on RFA #22. All needs attended to. Due meds given. Patient denies any pain or discomfort at this time. Safety precautions in p lace: bed in low, locked position; siderails up x2; call light within reach. Will endorse to shift supervisor film processing nurse for ILENE.
--- NOTE | 2022-04-02 19:20 | NUR ---
RN Opening Notes Received pt in bed, awake, laying in bed.A/Ox4, able to make needs known. On RA and tolerating well. No SOB noted. No s/sx of respiratory distress noted. IV access on LFA #22G. IV is intact, patent, and flushing well. Safety precautions in place: bed in lowest, locked position, siderails up x2, and brakes on. Table and call light within reach. All needs met at this time.
[2022-04-02 20:00] VITALS: BP 111/73
--- NOTE | 2022-04-02 21:26 | NUR ---
RN Notes Administered dilaudid for pain per MD order per pt request. VS WNL.
[2022-04-02] MEDS: CEFTRIAXONE 1 G in IV D5W 50 ML IV SCH (21:31)
[2022-04-03] MEDS: HYDROMORPHONE 1 MG/1 ML DISP.SYRIN IV PRN ×2 (05:27→11:30)
--- NOTE | 2022-04-03 05:28 | NUR ---
RN Notes Administered dilaudid for pain per MD order per pt request. VS WNL.
[2022-04-03 06:25] LABS: BASOPHILS % (AUTO) 0.6 % (0.0-2.0); EOSINOPHILS % (AUTO) 4.2 % (0.0-6.0); HEMATOCRIT 43 % (39-51); HEMOGLOBIN 14.1 g/dL (13.5-17.5); LYMPHOCYTES # (AUTO) 1.2 K/uL (0.8-4.8); LYMPHOCYTES % (AUTO) 17.3 % (20.0-44.0); MEAN CORPUSCULAR HGB CONC 33 g/dl (31.0-36.0); MEAN CORPUSCULAR VOLUME 88 fL (80-96); MONOCYTES # (AUTO) 0.9 K/uL (0.1-1.30); MONOCYTES % (AUTO) 12.6 % (2.0-12.0); NEUTROPHILS # (AUTO) 4.6 K/uL (1.8-8.9); NEUTROPHILS % (AUTO) 65.3 % (43.0-81.0); PLATELET COUNT (AUTO) 85 K/uL (150-450); RED BLOOD CELL COUNT(AUTO) 4.92 MIL/uL (4.5-6.0)
[2022-04-03] MEDS: CHLORDIAZEPOXIDE HCL 25 MG CAPSULE PO SCH ×2 (06:33→11:29)
--- NOTE | 2022-04-03 06:45 | NUR ---
RN Closing Notes Pt laying in bed, awake, watching videos on phone. A/Ox4, able to make needs known. On RA and tolerating well. No SOB noted. No s/sx of respiratory distress noted. IV access on LFA #22G. IV is intact, patent, and flushing well. All orders carried out. All needs met. Pt kept clean and dry. Treated pain throughout shift. Safety precautions in place: bed in lowest, locked position, siderails up x2, and brakes on. Table and call light within reach. Will endorse to oncoming shift for ILENE.
[2022-04-03 06:48] LABS: CALCIUM, SERUM 8.8 mg/dL (8.5-10.1); CREATININE 0.9 mg/dL (0.6-1.3); POTASSIUM 3.5 mmol/L (3.5-5.1)
[2022-04-03 08:00] VITALS: BP 116/68
[2022-04-03 08:04] VITALS: BP 116/68
[2022-04-03] MEDS: PANTOPRAZOLE 40 MG/PACK PACK PO SCH (08:04)
[2022-04-03] MEDS: ASPIRIN 81 MG TAB.CHEW PO SCH (08:04)
[2022-04-03] MEDS: METOPROLOL TARTRATE 50 MG TABLET PO SCH (08:04)
[2022-04-03] MEDS: FUROSEMIDE 40 MG TABLET PO SCH (08:04)
--- NOTE | 2022-04-03 12:20 | NUR ---
PATIENT A/O X4, ON RA SATURATING WELL. NO EVIDENCE OF WITHDRAWALS. DENIES N/V. PAIN MANAGED WITH DILAUDID. ABLE TO MAKE NEEDS KNOWN. AMBULATORY WITH STEADY GAIT. CONTINENT. IV ACCESS REMOVED. INDEPENDENT WITH REPOSITIONING. GRANDMOTHER AT BEDSIDE. PER PT HE WILL BE STAYING WITH HIS GRANDMA. DISCHARGE INSTRUCTIONS AND HEALTH TEACHINGS GIVEN, PT VERBALIZED UNDERSTANDING.
[2022-04-03 12:37] LABS: EOSINOPHILS % (MANUAL) 6 % (0-4); LYMPHOCYTES % (MANUAL) 21 % (16-48); MONOCYTES % (MANUAL) 10 % (0-11.0); NEUTROPHILS % (MANUAL) 63 (42-76)
[2022-04-03] MEDS ORDERED: CHLO25CA22 PO ×2 (13:23→14:01)
--- NOTE | 2022-04-03 13:42 | NUR ---
SS consult : SS Consult requested for Alcohol use. The pt. is a 36-year-old male pt. who was admitted to [facility] due to alcohol withdrawal, Chest pain, high risk ACS per EMR. Upon SS consult, the pt. is Alert & Oriented x 4 and makes good eye contact. The pt.s grandmother, Larissa [phone] is at bedside and pt. wanted his grandmother present during interview. The pt. appears with poor hygiene. Pt. has depressed mood & flat affect. Pt.s speech is low and slows and thought process is WNL. Pt. remained calm & cooperative throughout interview and somewhat guarded. Pt. denies SI/HI and denies hallucinations. SW explored pt.s living situation. Patient states he currently lives with his grandparents [facility] [facility] [address] SW explored pt.s drug & ETOH use. Pt. states he drinks about 1/5 bottle of Vodka daily. ALIDA used motivational interviewing and educated pt. on alcohol dependence and offered pt. rehab referral and pt. stated he will use resources to find rehab. Per pt. he is uncertain if he wants to do outpatient treatment or residential treatment. Pt. accepted addiction resources ALIDA provided. Pt. states she was in a residential treatment program in [place] called [facility] [place] [id number] for [facility]. Per pt., he stated it helped him but he thinks he was not ready to quit drinking then and states he feels ready now. Pt. denies Hx. of mental illness. Per pt. he is ambulatory independent with all his ADLs. Pt. states he receives any [employer] [place]. Per pt. he is currently unemployed. Plan: ALIDA provided pt. with the following addiction and mental health resources and pt. accepted them. Per pt. he would like to return to home [[address] [facility] [address]]. Pt. will be discharging today per and pt.s grandmother will be providing transport. ADDICTION RESOURCES For Drugs and Alcohol [facility] sober living Referrals For Rehabilitation once sober Address:[address] [place] [address] [facility] [address] [place] [address] Detox/residential [facility] Substance Abuse Helpline ([facility]) Outpatient, residential treatment, recovery support for youth/adults [facility] www.actionfamilycounsWorkWell Systems [facility] Teen programs for drug/alcohol education and support Marie Beckham Kim. Program for adults, sliding scale provides support and education [employer] www.[employer].org [place]; Detox/residential treatment programs; transition to sober living [facility] www.cri-help.org [place]; Outpatient and residential treatment programs; transition to sober living [facility] TEL: [phone] [facility] Gustavo Garcia; Outpatient education and supportive programs for teens and adults [facility] www.oasiswomensreckansas voice centery.org [place]; Residential treatment and work program for females only [facility] www.[facility].org [place]: Outpatient/residential treatment program for teens and young adults [facility] www.[facility].org [place] Detox, inpatient, outpatient for adults and youth [facility], [facility]. [place]; Outpatient programs and referrals to community residential programs. Alcoholics Anonymous -SFV information and meeting and scheduleswww.aa-intergroup.org Bn-Kzll-Ebvmjcm https://al-suzanne.org/ [place] support groups for family of alcoholics. Marijuana Anonymous www.madistrict6.org -SFV listing of meetings Narcotics Anonymous www.na.org SOBER LIVING RESOURCES [facility] www.soberhouNodejitsu.net A non-profit agency that provides resources to recovery and sober living homes throughout [place], [place], [facility] Mens Sober Living Homes: A Work in Progress, Aparna Cabrito [facility] Recovery [facility], [facility] Womens Sober Living Homes: [facility] x [phone], [place] Odyssey [facility] Coed Sober Living Homes: [facility] Counseling--Outpatient [facility] [address] [facility] [place] [address] (Specializes in in-depth psychotherapy for emotional distress: anxiety, depression, interpersonal conflicts, life transitions, childhood abuse) [facility] [address] [place] [address] (Assist with solving problem marital difficulties, separation & divorce, aging parents, & grief, chronic & terminal illness) [facility] [address] [place] [address] (Deal with loss & grief, anxiety, marital difficulties) Homebound/Mental Health Services [address] [place] [address] (Provide in-home mental services to people who are incapable of leaving their homes) [facility]eds of the Elderly Senior Service/Resource Center [address] [place] [address] [facility] [address] [place] [address] Mental Health Services Juhi Wallace [address] [place] [address] Services: Outpatient therapy for children, teens, young adults, adults, older adults, and families; Psychiatric services, medication support Psychiatric Outpatient Services [facility] Partial Hospitalization and Intensive Outpatient Program (Managed Care and [place] Only)[address] [facility] [phone] [facility] Partial Hospitalization and Outpatient [address] [place], [place] [phone] [facility] [id number] [facility]. [address] [place], [place] [phone] [facility] Partial Hospitalization and Outpatient [id number] [facility] RadhaNEW CAMBRIA, [phone] Crisis and Hotline Telephone Numbers 24-Hour service unless stated [place] Crisis Hotlines: [facility] Mental Health/Crisis Line........[phone] Suicide Prevention Center (24 Hours).......[phone] Suicide Prevention Crisis Center.......[phone] (24 Hours) Assaults Against Women Hotline.........379.408.8567 (24 Hours -- [facility]) Women and Children Crisis Group Home...........[phone] (24 Hours) Child Abuse Hotline............900.938.7622 [facility] Children[facility] Services Rape Treatment Center (24 Hours)..........[phone] Alcoholics Anonymous (24 Hours)..........[phone] Cocaine Anonymous (24 Hours)............[phone] Narcotics Anonymous (24 Hours)..........[phone] Kathya Waite [facility] [address] [place] [address]
== END 2022-04-03 12:50 | disposition home or self-care (01) | DRG 463 ==
LOC: ER 18:51 → MED 22:36 → TELE 22:41 → MED 04-01 10:34
PROVIDERS: ADMIT Nurse Practitioner Acute Care; ATTEND Nurse Practitioner Acute Care
DX: N39.0 Urinary tract infection, site not specified (principal); I85.00 Esophageal varices without bleeding; K76.0 Fatty (change of) liver, not elsewhere classified; F10.139 Alcohol abuse with withdrawal, unspecified; E66.9 Obesity, unspecified; Y90.8 Blood alcohol level of 240 mg/100 ml or more; Z68.41 Body mass index [BMI] 40.0-44.9, adult; Z20.822 Contact with and (suspected) exposure to COVID-19; I10 Essential (primary) hypertension; Z79.82 Long term (current) use of aspirin; Z79.899 Other long term (current) drug therapy; F12.90 Cannabis use, unspecified, uncomplicated; B96.89 Other specified bacterial agents as the cause of diseases classified elsewhere; R74.01 Elevation of levels of liver transaminase levels; Z86.69 Personal history of other diseases of the nervous system and sense organs; K44.9 Diaphragmatic hernia without obstruction or gangrene; Z87.898 Personal history of other specified conditions
CPT/HCPCS: 36415; 71045-TC; 80048-TC; 80076-TC; 81001; 83735-TC; 84100-TC; 84484-TC; 85025-TC; 87081-TC; 87086-TC; A4223; C9113; C9803; G0378; G0480; J0696; J1170; J2060; J2270; J2405; J3411; J7030; J7060

== ENCOUNTER 2022-07-13 09:07 | Emergency (ER) | payer MEDICAID ==
[~2022-07-13] VITALS: Ht 182.9 cm; Wt 113.4 kg
--- NOTE | 2022-07-13 09:25 | NUR ---
BIBSELF C/O SHORTNESS OF BREATH X2 HOURS. DRANK 1L OF VODKA LAST NIGHT. ALSO COMPLAINS OF NAUSEA AND VOMITING . HE ALSO MENTIONED THAT HE HAD SYNCOPAL EPISODE AND HIT HIS FRONT HEAD. NO OBVIOUS INJURY NOTED . NOTIFIED.
--- NOTE | 2022-07-13 09:30 | NUR ---
BIBSELF SOB X2 HOURS S/P ALCOHOL CONSUMPTION LAST NIGHT, + NAUSEA AND VOMITTING
--- NOTE | 2022-07-13 09:36 | NUR ---
URINE SAMPLE OBTAINED SENT TO LAB
--- NOTE | 2022-07-13 09:36 | NUR ---
BLOOD SAMPLE OBTAINED SENT TO LAB
--- NOTE | 2022-07-13 09:36 | NUR ---
ESTABLISHED IV LINE RIGHT HAND 20 G . INFUSING WELL
[2022-07-13 09:57] LABS: BASOPHILS % (AUTO) 0.6 % (0.0-2.0); HEMATOCRIT 50 % (39-51); HEMOGLOBIN 16.4 g/dL (13.5-17.5); LYMPHOCYTES # (AUTO) 2.8 K/uL (0.8-4.8); LYMPHOCYTES % (AUTO) 36.2 % (20.0-44.0); MEAN CORPUSCULAR HGB CONC 33 g/dl (31.0-36.0); MEAN CORPUSCULAR VOLUME 85 fL (80-96); MONOCYTES # (AUTO) 0.7 K/uL (0.1-1.30); MONOCYTES % (AUTO) 9.8 % (2.0-12.0); NEUTROPHILS % (AUTO) 52.4 % (43.0-81.0); PLATELET COUNT (AUTO) 180 K/uL (150-450); RED BLOOD CELL COUNT(AUTO) 5.89 MIL/uL (4.5-6.0); WHITE BLOOD COUNT (AUTO) 7.6 K/uL (4.3-11.0)
[2022-07-13] MEDS ORDERED: ONDANSETRON HCL/PF 4 MG/2 ML VIAL ONE (09:58)
[2022-07-13] MEDS ORDERED: LORAZEPAM INJ 2 MG/ML VIAL IV ONE (10:00)
[2022-07-13] MEDS ORDERED: ONDANSETRON HCL/PF 4 MG/2 ML VIAL IV ONE (10:00)
[2022-07-13] MEDS ORDERED: IV NS 0.9% 1,000 ML IV ONE (10:00)
[2022-07-13] MEDS ORDERED: LORAZEPAM INJ 2 MG/ML VIAL ONE (10:16)
[2022-07-13 10:20] LABS: ALBUMIN 3.9 g/dL (3.4-5.0); CREATININE 0.9 mg/dL (0.6-1.3); MAGNESIUM 1.8 mg/dL (1.8-2.4); POTASSIUM 3.5 mmol/L (3.5-5.1); TOTAL PROTEIN, SERUM 8.7 g/dL (6.4-8.2)
--- NOTE | 2022-07-13 10:24 | NUR ---
PT CONNECTED TO NC AT 2L.
[2022-07-13] MEDS ORDERED: KETOROLAC TROMETHAMINE 15 MG/ML VIAL ONE (10:44)
[2022-07-13] MEDS ORDERED: KETOROLAC TROMETHAMINE INJ 30 MG/ML VIAL IV ONE (11:00)
--- NOTE | 2022-07-13 11:30 | NUR ---
pt still claims with blurring of vision and abdominal pain rt side. wnl vs, claims with better breathing than before./.
[2022-07-13] MEDS ORDERED: MORPHINE SULFATE INJ 4 MG/ML DISP.SYRIN ONE (11:35)
[2022-07-13] MEDS ORDERED: FAMOTIDINE/PF INJ 20 MG/2 ML VIAL IV ONE ×2 (11:36→12:00)
[2022-07-13] MEDS ORDERED: CHLO25CA22 PO (11:56)
[2022-07-13] MEDS ORDERED: FAMO20TA8 PO (11:56)
[2022-07-13] MEDS ORDERED: MORPHINE SULFATE INJ 2 MG/ML DISP.SYRIN IV ONE (12:00)
[2022-07-13 13:15] VITALS: BP 113/70
== END 2022-07-13 13:16 | disposition home or self-care (01) ==
LOC: ER 09:15
DX: K29.20 Alcoholic gastritis without bleeding (principal); E86.0 Dehydration; F10.90 Alcohol use, unspecified, uncomplicated; R10.9 Unspecified abdominal pain; I10 Essential (primary) hypertension; Z79.899 Other long term (current) drug therapy; Y90.9 Presence of alcohol in blood, level not specified
CPT/HCPCS: 99285; 96374; 96375; 76705; 71045; 96361; 93005; 85025; 83735; 36415; 80053; 83880; J2060; J2270; J3490; J2405; J7030; J1885

== ENCOUNTER 2024-07-17 13:06 | Emergency (ER) | payer MEDICAID ==
[~2024-07-17] VITALS: Ht 185.4 cm; Wt 108.9 kg
[~2024-07-17 13:06] MED LIST changes: +FAMO20TA8 PO
[2024-07-17] MEDS ORDERED: ONDANSETRON HCL/PF 4 MG/2 ML VIAL ONE (13:55)
[2024-07-17] MEDS ORDERED: LORAZEPAM INJ 2 MG/ML VIAL ONE ×2 (13:56→15:32)
[2024-07-17] MEDS: IV NS 0.9% 1,000 ML BAG IV ONE (14:05)
[2024-07-17] MEDS: LORAZEPAM INJ 2 MG/ML VIAL IVP ONE (14:06)
[2024-07-17] MEDS: ONDANSETRON 4 MG TAB.RAPDIS PO ONE (14:06)
[2024-07-17 14:25] LABS: BASOPHILS % (AUTO) 0.3 % (0.0-2.0); EOSINOPHILS % (AUTO) 0.7 % (0.0-6.0); HEMATOCRIT 46 % (39-51); LYMPHOCYTES # (AUTO) 1.9 K/uL (0.8-4.8); LYMPHOCYTES % (AUTO) 27.4 % (20.0-44.0); MEAN CORPUSCULAR HEMOGLOBIN 31 PG (26.0-33.0); MEAN CORPUSCULAR HGB CONC 35 g/dl (31.0-36.0); MEAN CORPUSCULAR VOLUME 90 fL (80-96); MONOCYTES # (AUTO) 0.7 K/uL (0.1-1.30); MONOCYTES % (AUTO) 10.8 % (2.0-12.0); NEUTROPHILS # (AUTO) 4.2 K/uL (1.8-8.9); NEUTROPHILS % (AUTO) 60.8 % (43.0-81.0); PLATELET COUNT (AUTO) 95 K/uL (150-450); RED BLOOD CELL COUNT(AUTO) 5.13 MIL/uL (4.5-6.0); RED CELL DISTRIBUTION WIDTH 14.4 % (11.5-15.0); WHITE BLOOD COUNT (AUTO) 6.9 K/uL (4.3-11.0)
[2024-07-17 14:37] LABS: CALCIUM, SERUM 9.1 mg/dL (8.5-10.1); CARBON DIOXIDE 28 mmol/L (21-32); CHLORIDE 100 mmol/L (98-107); CREATININE 0.7 mg/dL (0.6-1.3); GLUCOSE 135 mg/dL (74-106); POTASSIUM 3.4 mmol/L (3.5-5.1); SODIUM SERUM 137 mmol/L (136-145); UREA NITROGEN, BLOOD 9 mg/dL (7-18)
[2024-07-17 14:38] LABS: MAGNESIUM 2.1 mg/dL (1.8-2.4); PHOSPHORUS 3.1 mg/dL (2.5-4.9)
[2024-07-17 14:41] LABS: ALANINE AMINOTRANSFERASE 53 U/L (12-78); ALBUMIN 3.6 g/dL (3.4-5.0); ALCOHOL, BLOOD 202 mg/dL (0-10); ALKALINE PHOSPHATASE 147 U/L (46-116); ASPARTATE AMINOTRANSFERASE 69 U/L (15-37); BILIRUBIN,DIRECT 0.3 mg/dL (0.0-0.2); TOTAL PROTEIN, SERUM 9.1 g/dL (6.4-8.2)
[2024-07-17 14:42] LABS: ACETAMINOPHEN <10 ug/ml (10-30); SALICYLATE < 0.2 mg/dL (2.8-20.0)
[2024-07-17 15:11] LABS: AMPHETAMINE, URINE NEGATIVE (NEGATIVE); BARBITURATE, URINE NEGATIVE (NEGATIVE); BENZODIAZEPINE, URINE NEGATIVE (NEGATIVE); CANNABINOID, URINE POSITIVE (NEGATIVE); COCCAINE, URINE NEGATIVE (NEGATIVE); OPIATE, URINE NEGATIVE (NEGATIVE); PHENCYCLIDINE SCREEN,URINE NEGATIVE (NEGATIVE)
[2024-07-17 15:18] LABS: APPEARANCE,URINE CLEAR (CLEAR); BILIRUBIN,URINE NEGATIVE (NEGATIVE); BLOOD, URINE NEGATIVE Ery/uL (NEGATIVE); COLOR,URINE YELLOW (YELLOW); KETONES,URINE NEGATIVE (NEGATIVE); LEUKOCYTE ESTERASE ,URINE TRACE (NEGATIVE); NITRITE, URINE NEGATIVE (NEGATIVE); PH,URINE 6.5 (5.0-8.0); PROTEIN,URINE 1+ mg/dl (NEGATIVE); UGLUCOSE NEGATIVE (NEGATIVE)
[2024-07-17] MEDS: LORAZEPAM INJ 2 MG/ML VIAL IV ONE (15:38)
[2024-07-17 16:15] LABS: ADD URINE CULTURE NO; BACTERIA,URINE Rare /HPF (None Seen); MUCUS,URINE Many /LPF (None Seen); RBC,URINE 0-2 /HPF (0-2)
[2024-07-17] MEDS ORDERED: CHLO25CA22 PO (16:26)
[2024-07-17 16:46] VITALS: BP 132/87; TEMP 98; O2SAT 100
[2024-07-17 23:38] LABS: LYMPHOCYTES % (MANUAL) 29 % (16-48); NEUTROPHILS % (MANUAL) 63 (42-76)
[2024-07-17 23:39] LABS: MONOCYTES % (MANUAL) 8 % (0-11.0); PLATELET ESTIMATE DECREASED
== END 2024-07-17 16:46 | disposition home or self-care (01) ==
LOC: ER 13:25
DX: F10.139 Alcohol abuse with withdrawal, unspecified (principal); F41.9 Anxiety disorder, unspecified; I11.0 Hypertensive heart disease with heart failure; I50.9 Heart failure, unspecified; Z79.82 Long term (current) use of aspirin; Z79.899 Other long term (current) drug therapy; Z20.822 Contact with and (suspected) exposure to COVID-19; Y90.7 Blood alcohol level of 200-239 mg/100 ml
CPT/HCPCS: 99284; 96374; 96361; 93005; 96376; 85025; 80048; 83690; 80076; 83735; 84100; 85007; 81001; 36415; 87426; 80143; 80320; 80307; J2060 ×2; J2405; J7030; G0480

== ENCOUNTER 2025-01-02 12:07 | Emergency (ER) | payer MEDICAID ==
[~2025-01-02] VITALS: Ht 182.9 cm; Wt 111.1 kg
[2025-01-02] MEDS ORDERED: LORAZEPAM 1 MG TABLET ONE (12:58)
[2025-01-02] MEDS: LORAZEPAM 1 MG TABLET PO ONE (13:02)
[2025-01-02] MEDS: IV NS 0.9% 1,000 ML BAG IV ONE (14:41)
[2025-01-02 14:50] LABS: PLATELET COUNT (AUTO) 121 K/uL (150-450); RED BLOOD CELL COUNT(AUTO) 5.21 MIL/uL (4.5-6.0); RED CELL DISTRIBUTION WIDTH 16.5 % (11.5-15.0); WHITE BLOOD COUNT (AUTO) 7.0 K/uL (4.3-11.0)
[2025-01-02 14:59] LABS: CALCIUM, SERUM 8.6 mg/dL (8.5-10.1); CREATININE 0.6 mg/dL (0.6-1.3); SODIUM SERUM 143.0 mmol/L (136-145); UREA NITROGEN, BLOOD 9.0 mg/dL (7-18)
[2025-01-02 15:04] LABS: ASPARTATE AMINOTRANSFERASE 79.0 U/L (15-37); TOTAL PROTEIN, SERUM 6.9 g/dL (6.4-8.2)
[2025-01-02] MEDS ORDERED: LORAZEPAM 1 MG TABLET PO ONE (20:00)
[2025-01-02] MEDS ORDERED: LORA-259 PO (20:04)
[2025-01-02 20:22] VITALS: BP 122/80; TEMP 98.8; O2SAT 95
== END 2025-01-02 20:22 | disposition home or self-care (01) ==
LOC: ER 12:15
DX: R07.89 Other chest pain (principal); I11.9 Hypertensive heart disease without heart failure; F10.239 Alcohol dependence with withdrawal, unspecified; Z79.82 Long term (current) use of aspirin; Z79.899 Other long term (current) drug therapy; Y90.9 Presence of alcohol in blood, level not specified
CPT/HCPCS: 99285; 96360; 71045; 93005 ×2; 85025; 83690; 83735; 36415; 80053; 84484 ×2; 82962; J7030

== ENCOUNTER 2025-01-05 21:51 | Inpatient (IN) | payer MEDICAID, OTHER ==
[~2025-01-05] VITALS: Ht 185.4 cm; Wt 103.0 kg
[~2025-01-05 21:51] MED LIST changes: +LORA-259 PO
[2025-01-06] VITALS (9 sets, daily range): BP systolic 125–147; BP diastolic 88–107; TEMP 97.2–98.6; O2SAT 93–97
[2025-01-06] MEDS ORDERED: ONDANSETRON HCL/PF 4 MG/2 ML VIAL IVP PRN
[2025-01-06] MEDS ORDERED: MAGNESIUM HYDROXIDE 30 ML UDC PO PRN
[2025-01-06] MEDS ORDERED: LORAZEPAM INJ 2 MG/ML VIAL IV PRN
[2025-01-06] MEDS ORDERED: ACETAMINOPHEN 325 MG TABLET PO PRN
[2025-01-06] MEDS ORDERED: MAG HYDROX/AL HYDROX/SIMETH 30 ML UDC PO PRN
[2025-01-06] MEDS: CHLORDIAZEPOXIDE HCL 25 MG CAPSULE PO SCH (00:55)
[2025-01-06] MEDS: Thiamine 100 MG in IV D5W 50 ML IV SCH (01:06)
[2025-01-06] MEDS: IV D5/0.45 NACL 1,000 ML IV SCH (01:58)
[2025-01-06 06:09] LABS: PLATELET COUNT (AUTO) 88 K/uL (150-450); RED BLOOD CELL COUNT(AUTO) 4.63 MIL/uL (4.5-6.0); RED CELL DISTRIBUTION WIDTH 16.1 % (11.5-15.0); WHITE BLOOD COUNT (AUTO) 4.7 K/uL (4.3-11.0)
[2025-01-06 06:28] LABS: LDL 77.0 mg/dL (0-99)
[2025-01-06 06:41] LABS: ASPARTATE AMINOTRANSFERASE 48.0 U/L (15-37); CALCIUM, SERUM 8.3 mg/dL (8.5-10.1); CREATININE 0.6 mg/dL (0.6-1.3); PHOSPHORUS 3.7 mg/dL (2.5-4.9); SODIUM SERUM 143.0 mmol/L (136-145); TOTAL PROTEIN, SERUM 6.1 g/dL (6.4-8.2); UREA NITROGEN, BLOOD 5.0 mg/dL (7-18)
[2025-01-06] MEDS: LORAZEPAM INJ 2 MG/ML VIAL IM ONE (06:43)
[2025-01-06] MEDS: LORAZEPAM 4 MG/ML VIAL IM ONE (06:48)
[2025-01-06 07:30] LABS: EOSINOPHILS % (MANUAL) 3 % (0-4); LYMPHOCYTES % (MANUAL) 31 % (16-48); MONOCYTES % (MANUAL) 12 % (0-11.0); NEUTROPHILS % (MANUAL) 54 (42-76); PLATELET ESTIMATE DECREASED
[2025-01-06] MEDS: PANTOPRAZOLE 40 MG TABLET.DR PO SCH (07:33)
[2025-01-06] MEDS: FOLIC ACID 1 MG TABLET PO SCH (08:08)
[2025-01-06] MEDS: LORAZEPAM 1 MG TABLET PO PRN (11:01)
[2025-01-06] MEDS: THIAMINE HCL 100 MG TABLET PO SCH (17:04)
[2025-01-07] VITALS: BP 121/90; TEMP 97.9; O2SAT 94
[2025-01-07 04:00] VITALS: BP 130/98; TEMP 98.4; O2SAT 95
== END 2025-01-07 08:25 | disposition left against medical advice (07) | DRG 894 ==
LOC: TELE 23:04
DX: F10.139 Alcohol abuse with withdrawal, unspecified (principal); I10 Essential (primary) hypertension; K70.10 Alcoholic hepatitis without ascites; R07.9 Chest pain, unspecified; R06.02 Shortness of breath; Y90.9 Presence of alcohol in blood, level not specified; R74.01 Elevation of levels of liver transaminase levels
CPT/HCPCS: 36415; 71045-TC; 80053-TC; 80061-TC; 82962-TC; 83735-TC; 84100-TC; 84443-TC; 85027-TC; 87081-TC; 98960; A4223; G0378; J2060; J3411; J3490; J7060